=== PATIENT | male | born 1930 | race Caucasian/White ===

== ENCOUNTER → 2020-02-17 | Day surgery (SDC) | payer MEDICARE, OTHER ==
--- NOTE | 2020-02-12 09:37 | NUR ---
Checked patient temperature: 97.7F via skin probe. Patient denies being out of the country in the last 14 days. Patient denies being around anyone who has been out of the country in the last 14 days. Patient denies being around anyone who has been exposed or diagnosed with garces virus in the last 14 days. Patient denies fever, shortness of breath, or cough.
[2020-02-12 11:21] LABS: ALANINE AMINOTRANSFERASE 22 IU/L (0-55); ALBUMIN 3.8 g/dL (3.5-5.0); ALBUMIN/GLOBULIN RATIO 1.3 (0.8-2.0); ALKALINE PHOSPHATASE 46 IU/L (40-150); ANION GAP 10.3 mmol/L (8-16); BLOOD UREA NITROGEN 20 mg/dL (7-26); BUN/CREATININE RATIO 18 (6-25); CALCIUM 9.5 mg/dL (8.4-10.2); CARBON DIOXIDE 27 mmol/L (22-29); CHLORIDE 104 mmol/L (98-107); CREATININE, SERUM 1.13 mg/dL (0.72-1.25); EST GLOMERULAR FILTRATION RATE > 60 ML/MIN (60-); GLUCOSE 102 mg/dL (74-118); POTASSIUM 4.3 mmol/L (3.5-5.1); SODIUM 137 mmol/L (136-145)
[2020-02-12 11:25] LABS: BASOPHILS # (AUTO) 0.1 (0.0-0.1); BASOPHILS % 0.8 % (0.0-1.0); EOSINOPHILS # (AUTO) 0.2 (0.0-0.4); EOSINOPHILS % 1.9 % (0.0-6.0); HEMATOCRIT 39.1 % (38.2-49.6); HEMOGLOBIN 12.8 g/dL (14.0-18.0); LYMPHOCYTES # (AUTO) 1.6 (1.0-3.2); MEAN CORPUSCULAR HEMOGLOBIN 31.5 pg (28-32); MEAN CORPUSCULAR HGB CONC 32.7 g/dL (31-35); MEAN CORPUSCULAR VOLUME 96.3 fL (81-99); MONOCYTES # (AUTO) 1.1 (0.2-0.8); MONOCYTES % 12.6 % (4.4-11.3); NEUTROPHILS # (AUTO) 5.8 (2.1-6.9); NEUTROPHILS % 66.4 % (38.7-80.0); PLATELET COUNT 184 x10e3/uL (140-360); RED BLOOD COUNT 4.06 x10e6/uL (4.3-5.7); RED CELL DISTRIBUTION WIDTH 12.7 % (11.7-14.4)
--- NOTE | 2020-02-16 16:10 | NUR ---
Notified patient of time for procedure changed to 0900 on 02/17/2020. Patient notified to arrive 0730 at the hospital. Patient verbalized understanding.
[~2020-02-17] VITALS: Ht 172.7 cm; Wt 92.5 kg
[~2020-02-17] MED LIST: CALCIUM-VITAMIN D PO; ELIQUIS5 MG PO; FAMOTIDINE20 MG PO; FENTANYL CITRATE/PF 100MCG/2 ML INJ ONE; GABAPENTIN600 MG PO; HEPARIN SOD/SOD CHLORIDE 2,000 ML ONE; IOPAMIDOL 370 MG/ML 200 ML INFUS..BTL INJ ONE; IRON PO; LASIX40 MG PO; LEVOTHYROXINE75 MCG PO; LIDOCAINE HCL 2% LOCAL 20 ML VIAL ONE; LOSARTAN POTAS100 MG PO; MIDAZOLAM HCL 2 MG/2 ML VIAL ONE; NYQUIL PO; POTASSIUM CHLO10 ME1 PO; PRAMIPEXOLE D0.25 MG PO; SIMVASTATIN20 MG PO; SODIUM CHLORIDE 0.9% 1000ML 1,000 ML ONE; VERAPAMIL HCL 2.5 MG/ML 2 ML VIAL ONE; VITAMIN D3 PO
[2020-02-17 09:45] VITALS: BP 80/59
--- NOTE | 2020-02-17 09:45 | NUR ---
0945am RECEIVING NOTE [employer] [employer]............................................................... Bedside report received from GARFIELD Taylor. Identifierx2. Alert oriented and appropriate, PERRLA, respirations even and unlabored to room air. Pulses x4 extremities equal and strong. Pedal pulses PT/DP X4 and marked. TR band ok down 1030a Atrial fib VS stable.No gross issues pain pallor pressure or dysrhythmia. Skin warm and dry integrity appears D/I. IV 20g to left hand site, presents healthy w/o s/s of infiltration or complaint. Abdomen soft and supple. pt offered toileting, denies need to urinate or defecate. No personal affects with patient. Family at bedside.. Pt and family verbalizes understanding of POC. Currently w/o complaint of pain or need. carlota/rn
[2020-02-17 10:00] VITALS: BP 92/64
--- NOTE | 2020-02-17 10:13 | Operative Report ---
DATE OF PROCEDURE: 02/17/2020 SURGEON: Sanju Santiago MD INDICATION: Coronary artery disease, unstable angina, abnormal stress test. PROCEDURES PERFORMED: 1. Left heart catheterization, selective coronary angiography. 2. Deployment of right wrist TR band. 3. Conscious sedation administration, hemodynamic neurological monitoring and recovery by confectionery laboratory manager RN and supervision by , 35 minutes. DESCRIPTION OF PROCEDURE: Access obtained in the right radial artery. A 5-[place] sheath was placed. Coronary angiography demonstrated moderate diffuse coronary artery disease, 30% to 50% diffuse stenosis. Right coronary artery was nondominant. Mid left anterior descending artery 50% stenosis. LV end-diastolic pressure of 5. No gradient across the aortic valve pullback. Right wrist TR band applied. The patient discharged home same day. BLOOD LOSS: Minimal. RECOMMENDATIONS: Medical therapy. COMPLICATIONS: None. Sanju Santiago MD [facility]/MODL /[id number]
[2020-02-17 10:15] VITALS: BP 100/70
[2020-02-17 10:30] VITALS: BP 100/70
--- NOTE | 2020-02-17 10:30 | NUR ---
1030am RADIAL COMPRESSION REMOVAL NOTE: Initial Cuff volume 12 cc 1030am -2cc Removed No hematoma/bleeding noted with normal neurovascular function. 1045am -5cc Removed No hematoma/ bleeding noted with normal neurovascular function. 1100am -5cc Removed No hematoma/bleeding noted with normal neurovascular function. Air removal completed. Stasis achieved sterile 2x2,Tegaderm, Coban dressing No hematoma, bleeding noted with normal neurovascular function. Wrist splint in place. Pt instructed on POC. Ds/Rn
[2020-02-17 10:45] VITALS: BP 103/63
[2020-02-17 11:00] VITALS: BP 100/70
--- NOTE | 2020-02-17 11:00 | NUR ---
[facility] RECOVERY DISCHARGE NURSING NOTE Pt meets DC criteria. Rt Tr band site assessed for s/s of complication and presence of hematoma. Skin warm, dry, no discolor, and pulses present. IV removed from left hand site Distal tip appears intact. VS WNL. Pt denies pain, sob, or need at this time. Family at BS. Review of discharge paperwork and follow up instructions. verbalized understanding. Pt to wheelchair and transported to front of hospital. Transferred to private vehicle under own strength w/o incident with DC paperwork in hand. - carlota/kami
== END | disposition home or self-care (01) ==
LOC: CATH LAB 07:07
PROVIDERS: ATTEND Internal Medicine Interventional Cardiology
DX: I25.110 Atherosclerotic heart disease of native coronary artery with unstable angina pectoris (principal); R94.39 Abnormal result of other cardiovascular function study; I11.0 Hypertensive heart disease with heart failure; I50.9 Heart failure, unspecified; I48.91 Unspecified atrial fibrillation; Z88.6 Allergy status to analgesic agent; Z01.812 Encounter for preprocedural laboratory examination; Z79.02 Long term (current) use of antithrombotics/antiplatelets; Z82.49 Family history of ischemic heart disease and other diseases of the circulatory system
CPT/HCPCS: 36415; 80053; 85025; 93458; C1769 ×2; C1887; J2001; J2250; J3010; J7030; Q9967; 99152